=== PATIENT | male | born 1975 | race Caucasian/White ===

== ENCOUNTER 2017-08-28 07:34 | Day surgery (SDC) | payer OTHER | END 2017-08-28 14:10 | disposition home or self-care (01) | LOC: AMB-ENDOS 07:34 | DX: D12.4 Benign neoplasm of descending colon (principal); D12.0 Benign neoplasm of cecum; D12.7 Benign neoplasm of rectosigmoid junction ==

== ENCOUNTER 2018-08-06 08:41 | Outpatient (CLI) | payer OTHER | END 2018-08-06 11:16 | disposition home or self-care (01) | LOC: NUCLEAR 08:41 | DX: C18.7 Malignant neoplasm of sigmoid colon (principal); R59.0 Localized enlarged lymph nodes; K62.5 Hemorrhage of anus and rectum | CPT/HCPCS: 78816; A9552 ==

== ENCOUNTER → 2019-12-30 | Day surgery (SDC) | payer OTHER | END | disposition home or self-care (01) | LOC: ADM 12-25 13:30 → AMB-ENDOS 08:11 → ADM 13:30 | PROVIDERS: ATTEND Surgery | DX: D12.4 Benign neoplasm of descending colon (principal); Z20.828 Contact with and (suspected) exposure to other viral communicable diseases ==